=== PATIENT | female | born 1940 ===

== ENCOUNTER → 2016-11-25 | Outpatient (CLI) | payer MEDICARE, OTHER ==
[~2016-11-25] MED LIST: ASPI-586 PO; CALC-140 PO; CLON1TAB3 PO; FURO20TA4 PO; GLIP5TAB13 PO; HYDR-3702 PO; IBP200T PO; MAGN500C4 PO; METF1000 PO; NF-ESOM40C PO; OLME40TA3 PO; ROSU40TA PO; SERT50TA PO; SPIR25TA PO
[2016-11-25 08:22] LABS: MEAN CORPUSCULAR VOLUME 87 FL (80-100); MEAN PLATELET VOLUME 10.2 FL (6.0-9.5); PLATELET COUNT 273 10^3uL (150-450); WHITE BLOOD COUNT 8.68 10^3uL (4.0-11.0)
[2016-11-25 08:43] LABS: BAND NEUTROPHILS % 0 % (0-6); EOSINOPHILS % 4 % (0-4); LYMPHOCYTES # 1.7 #; MONOCYTES # 0.4 #; MONOCYTES % 5 % (3-11); RBC MORPH NORMAL (NORMAL); SEGMENTED NEUTROPHILS % 71 % (51-67); TOTAL CELLS COUNTED 100
[2016-11-25 09:03] LABS: ALBUMIN 3.8 g/dL (3.4-5.0); ANION GAP 19.2 MEQ/L (3-15); CALCULATED IONIZED CALCIUM 4.1 mg/dL (3.8-4.6); TOTAL PROTEIN 7.6 g/dL (6.4-8.5)
[2016-11-25 17:21] LABS: IRON 42 ug/dL (50-170); UNBOUND IRON CONTENT 334 ug/dl (126-382)
== END ==
LOC: LAB 08:10
PROVIDERS: ATTEND Internal Medicine Hematology & Oncology
DX: D50.0 Iron deficiency anemia secondary to blood loss (chronic) (principal)
CPT/HCPCS: 36415; 80053; 82728; 83540; 83550; 85007; 85027